=== PATIENT | female | born 1995 | race African-American/Black ===

== ENCOUNTER 2020-07-01 19:46 | Emergency (ER) | payer SELFPAY ==
[~2020-07-01] VITALS: Ht 162.6 cm; Wt 55.0 kg
[2020-07-01 20:47] LABS: BASOPHILS % 0.6 % (0.0-2.0); CHLORIDE 103 mEq/L (98-107); EOSINOPHILS % 0.7 % (0.0-5.0); HEMATOCRIT. 40.7 % (36.0-48.0); HEMOGLOBIN. 13.2 g/dL (12.0-16.0); LYMPHOCYTES % 22.8 % (20.0-50.0); MEAN CORPUSCULAR HEMOGLOBIN 27.2 pg (28.0-32.0); MEAN CORPUSCULAR VOLUME 83.8 fL (81.0-99.0); MEAN PLATELET VOLUME 7.6 fl (7.4-10.4); MONOCYTES % 9.1 % (2.0-8.0); NEUTROPHILS % 66.8 % (40.0-76.0); PLATELET 318 x1000/uL (130-400); RED BLOOD CELL COUNT 4.85 mill/uL (4.2-5.4); RED CELL DISTRIBUTION WIDTH 14.1 % (11.6-14.6)
[2020-07-01 20:54] LABS: ETHANOL BLOOD < 10 mg/dL
[2020-07-01] MEDS ORDERED: HALOPERIDOL LACTATE 5MG/ML VIAL IM ONE (21:00)
[2020-07-01] MEDS ORDERED: LORAZEPAM 2MG/ML CPJ IM ONE (21:00)
[2020-07-01 21:37] LABS: CLARITY URINE CLEAR (CLEAR); COLOR URINE DARK YELLOW (YELLOW); KETONES URINE 1+ (NEGATIVE); LEUKOCYTE ESTERASE URINE TRACE (NEGATIVE); NITRITE URINE NEGATIVE (NEGATIVE); OCCULT BLOOD URINE 3+ (NEGATIVE); PH URINE 5.5 (4.5-8.0); PROTEIN URINE 1+ (NEGATIVE); SPECIFIC GRAVITY URINE 1.027 (1.005-1.030)
[2020-07-01 21:54] LABS: *AMPHETAMINES SCREEN URINE NEGATIVE (NEGATIVE); *BARBITURATES SCREEN URINE NEGATIVE (NEGATIVE); *BENZODIAZEPINES SCREEN URINE NEGATIVE (NEGATIVE); *COCAINE SCREEN URINE NEGATIVE (NEGATIVE)
[2020-07-01 21:55] LABS: METHADONE URINE SCREEN NEGATIVE (NEGATIVE); OPIATES URINE SCREEN NEGATIVE (NEGATIVE); PHENCYCLIDINE URINE SCREEN NEGATIVE (NEGATIVE)
[2020-07-01 21:58] LABS: CANNABINOID URINE SCREEN PRESUMTIVE POSITIVE (NEGATIVE)
[2020-07-01] MEDS ORDERED: POTASSIUM CHLORIDE 20MEQ TABLET SR PO ONE (22:45)
[2020-07-02] MEDS ORDERED: NITROFURANTOIN 100MG M/M CAPSULE PO SCH (09:00)
[2020-07-02 12:15] VITALS: BP 101/62
== END 2020-07-02 12:54 | disposition home or self-care (01) ==
LOC: EDBD 19:46 → ER 19:46
DX: T40.7X1A Poisoning by cannabis (derivatives), accidental (unintentional), initial encounter (principal); G93.40 Encephalopathy, unspecified; E87.6 Hypokalemia; N30.00 Acute cystitis without hematuria; Y92.89 Other specified places as the place of occurrence of the external cause
CPT/HCPCS: 36415; 80053; 80305; 80307; 80320; 80329; 81003; 81025; 85025; 93005; 96372; 99285; J1630; J2060; G0480